=== PATIENT | female | born 2000 | race Caucasian/White ===

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

== ENCOUNTER 2020-05-29 04:24 | Emergency (ER) | payer BC ==
[2020-05-29 04:40] VITALS: TEMP 98.6
--- NOTE | 2020-05-29 04:50 | ED ---
Arrhythmia/Palpitations HPI - General Chief Complaint: Arrhythmia/Palpitations Stated Complaint: rapid heart rate Time Seen by Provider: 05/29/20 04:37 Source: patient, family Mode of arrival: ambulatory Limitations: no limitations - History of Present Illness Initial Comments: This patient is a 19-year-old woman who presents with complaint that she woke this morning with her heart racing. Patient states she has had episodes were felt like her heart was racing since being placed on Vilazodone a few weeks ago. The patient tonight also felt some nausea associated. She has not had any chest pain, diaphoresis, dyspnea or had any vomiting. MD Complaint: "heart racing" -: hour(s) Context: occurred during rest, awoke with symptoms Associated Symptoms: nausea/vomiting - Related Data Home Medications Medication Instructions Recorded Confirmed Sertraline [Zoloft] 50 mg PO DAILY 08/23/14 04/10/16 Omeprazole 20 mg PO DAILY 05/04/15 04/10/16 Cyanocobalamin [Vitamin B-12] 500 mcg PO DAILY 04/10/16 04/10/16 Norgestimate-Ethinyl Estradiol 1 tab PO DAILY 04/10/16 04/10/16 [Norg-Ee 0.18-0.215-0.25/0.035] Previous Rx's Medication Instructions Recorded Doxycycline Hyclate [Vibramycin] 100 mg PO DAILY #14 cap 07/28/17 traMADol HCl [Ultram] 50 mg PO Q6H PRN #12 tab 07/28/17 Allergies Allergy/AdvReac Type Severity Reaction Status Date / Time No Known Allergies Allergy Verified 05/29/20 04:37 Review of Systems ROS Statement: Those systems with pertinent positive or pertinent negative responses have been documented in the HPI. ROS Other: All systems not noted in ROS Statement are negative. Constitutional: Denies: fever, chills, weakness Eyes: Denies: vision change Respiratory: Denies: cough, dyspnea, wheezes Cardiovascular: Reports: palpitations. Denies: chest pain, dyspnea on exertion, orthopnea, edema, syncope Gastrointestinal: Reports: nausea. Denies: abdominal pain, vomiting, diarrhea Genitourinary: Denies: dysuria, hematuria Musculoskeletal: Denies: back pain Skin: Denies: rash Neurological: Denies: headache, weakness, numbness Psychiatric: Reports: anxiety Past Medical History Past Medical History: GERD/Reflux Additional Past Medical History / Comment(s): ovarian cyst History of Any Multi-Drug Resistant Organisms: None Reported Past Surgical History: No Surgical Hx Reported Past Psychological History: ADD/ADHD, Anxiety, Depression Smoking Status: Current every day smoker Past Alcohol Use History: None Reported Past Drug Use History: None Reported General Exam Limitations: no limitations General appearance: alert, in no apparent distress, anxious Head exam: Present: atraumatic, normocephalic Eye exam: Present: normal appearance. Absent: scleral icterus, conjunctival injection ENT exam: Present: normal oropharynx Neck exam: Present: normal inspection Respiratory exam: Present: normal lung sounds bilaterally. Absent: respiratory distress, wheezes, rales, rhonchi, stridor Cardiovascular Exam: Present: regular rate (Heart rate 92 at my exam), normal rhythm, normal heart sounds. Absent: systolic murmur, diastolic murmur, rubs, gallop GI/Abdominal exam: Present: soft. Absent: distended, tenderness, guarding, rebound, rigid, mass Extremities exam: Present: normal inspection, normal capillary refill. Absent: pedal edema, calf tenderness Back exam: Present: normal inspection. Absent: CVA tenderness (R), CVA tenderness (L) Neurological exam: Present: alert Psychiatric exam: Present: anxious Skin exam: Present: warm, dry, intact, urticaria Course Vital Signs 05/29/20 05/29/20 04:37 06:23 Temperature 98.6 F Pulse Rate 117 H 78 Respiratory 20 18 Rate Blood Pressure 145/95 94/60 O2 Sat by Pulse 98 99 Oximetry EKG Findings - EKG Results: EKG: interpreted by JAYA CHRISTIANL, sinus rhythm (Rate 91 bpm), normal axis, normal QRS, normal ST/T, no acute changes - PR, Pacemaker, Normal: Normal tracing: normal tracing Medical Decision Making - Lab Data Result diagrams: 05/29/20 05:03 05/29/20 05:03 Lab Results 05/29/20 05/29/20 05/29/20 Range/Units 05:03 05:03 05:03 WBC 7.4 (3.8-10.6) k/uL RBC 4.22 (3.80-5.40) m/uL Hgb 13.3 (11.4-16.0) gm/dL Hct 38.2 (34.0-46.0) % MCV 90.7 (80.0-100.0) fL MCH 31.5 (25.0-35.0) pg MCHC 34.8 (31.0-37.0) g/dL RDW 12.2 (11.5-15.5) % Plt Count 214 (150-450) k/uL MPV 8.5 Neutrophils % 33 % Lymphocytes % 53 % Monocytes % 6 % Eosinophils % 2 % Basophils % 2 % Neutrophils # 2.5 (1.3-7.7) k/uL Lymphocytes # 3.9 (1.0-4.8) k/uL Monocytes # 0.4 (0-1.0) k/uL Eosinophils # 0.2 (0-0.7) k/uL Basophils # 0.2 (0-0.2) k/uL PT (9.0-12.0) sec INR (<1.2) APTT (22.0-30.0) sec D-Dimer (<0.60) mg/L FEU Sodium 138 (137-145) mmol/L Potassium 4.3 (3.5-5.1) mmol/L Chloride 109 H (98-107) mmol/L Carbon Dioxide 22 (22-30) mmol/L Anion Gap 7 mmol/L BUN 13 (7-17) mg/dL Creatinine 0.93 (0.52-1.04) mg/dL Est GFR (CKD-EPI)AfAm >90 (>60 ml/min/1.73 sqM) Est GFR (CKD-EPI)NonAf 89 (>60 ml/min/1.73 sqM) Glucose 100 H (74-99) mg/dL Calcium 9.6 (8.4-10.2) mg/dL Magnesium 1.8 (1.6-2.3) mg/dL Total Bilirubin 0.9 (0.2-1.3) mg/dL AST 26 (14-36) U/L ALT 10 (4-34) U/L Alkaline Phosphatase 51 (38-126) U/L Troponin I (0.000-0.034) ng/mL C-Reactive Protein <5.0 (<10.0) mg/L Total Protein 8.2 (6.3-8.2) g/dL Albumin 4.7 (3.5-5.0) g/dL TSH 5.620 H (0.465-4.680) mIU/L Urine Color Yellow Urine Appearance Cloudy H (Clear) Urine pH 5.5 (5.0-8.0) Ur Specific [place] 1.024 (1.001-1.035) Urine Protein Trace H (Negative) Urine Glucose (UA) Negative (Negative) Urine Ketones Negative (Negative) Urine Blood Trace H (Negative) Urine Nitrite Negative (Negative) Urine Bilirubin Negative (Negative) Urine Urobilinogen <2.0 (<2.0) mg/dL Ur Leukocyte Esterase Small H (Negative) Urine RBC 2 (0-5) /hpf Urine WBC 1 (0-5) /hpf Ur Squamous Epith Cells 13 H (0-4) /hpf Urine Mucus Few H (None) /hpf Urine HCG, Qual (Not Detectd) Urine Opiates Screen Not Detected (NotDetected) Ur Oxycodone Screen Not Detected (NotDetected) Urine Methadone Screen Not Detected (NotDetected) Ur Propoxyphene Screen Not Detected (NotDetected) Ur Barbiturates Screen Not Detected (NotDetected) U Tricyclic Antidepress Detected H (NotDetected) Ur Phencyclidine Scrn Not Detected (NotDetected) Ur Amphetamines Screen Not Detected (NotDetected) U Methamphetamines Scrn Not Detected (NotDetected) U Benzodiazepines Scrn Not Detected (NotDetected) Urine Cocaine Screen Not Detected (NotDetected) U Marijuana (THC) Screen Detected H (NotDetected) 05/29/20 05/29/20 05/29/20 Range/Units 05:03 05:21 06:14 WBC (3.8-10.6) k/uL RBC (3.80-5.40) m/uL Hgb (11.4-16.0) gm/dL Hct (34.0-46.0) % MCV (80.0-100.0) fL MCH (25.0-35.0) pg MCHC (31.0-37.0) g/dL RDW (11.5-15.5) % Plt Count (150-450) k/uL MPV Neutrophils % % Lymphocytes % % Monocytes % % Eosinophils % % Basophils % % Neutrophils # (1.3-7.7) k/uL Lymphocytes # (1.0-4.8) k/uL Monocytes # (0-1.0) k/uL Eosinophils # (0-0.7) k/uL Basophils # (0-0.2) k/uL PT 10.3 (9.0-12.0) sec INR 1.0 (<1.2) APTT 24.7 (22.0-30.0) sec D-Dimer 0.75 H (<0.60) mg/L FEU Sodium (137-145) mmol/L Potassium (3.5-5.1) mmol/L Chloride (98-107) mmol/L Carbon Dioxide (22-30) mmol/L Anion Gap mmol/L BUN (7-17) mg/dL Creatinine (0.52-1.04) mg/dL Est GFR (CKD-EPI)AfAm (>60 ml/min/1.73 sqM) Est GFR (CKD-EPI)NonAf (>60 ml/min/1.73 sqM) Glucose (74-99) mg/dL Calcium (8.4-10.2) mg/dL Magnesium (1.6-2.3) mg/dL Total Bilirubin (0.2-1.3) mg/dL AST (14-36) U/L ALT (4-34) U/L Alkaline Phosphatase (38-126) U/L Troponin I <0.012 (0.000-0.034) ng/mL C-Reactive Protein (<10.0) mg/L Total Protein (6.3-8.2) g/dL Albumin (3.5-5.0) g/dL TSH (0.465-4.680) mIU/L Urine Color Urine Appearance (Clear) Urine pH (5.0-8.0) Ur Specific [place] (1.001-1.035) Urine Protein (Negative) Urine Glucose (UA) (Negative) Urine Ketones (Negative) Urine Blood (Negative) Urine Nitrite (Negative) Urine Bilirubin (Negative) Urine Urobilinogen (<2.0) mg/dL Ur Leukocyte Esterase (Negative) Urine RBC (0-5) /hpf Urine WBC (0-5) /hpf Ur Squamous Epith Cells (0-4) /hpf Urine Mucus (None) /hpf Urine HCG, Qual Not Detected (Not Detectd) Urine Opiates Screen (NotDetected) Ur Oxycodone Screen (NotDetected) Urine Methadone Screen (NotDetected) Ur Propoxyphene Screen (NotDetected) Ur Barbiturates Screen (NotDetected) U Tricyclic Antidepress (NotDetected) Ur Phencyclidine Scrn (NotDetected) Ur Amphetamines Screen (NotDetected) U Methamphetamines Scrn (NotDetected) U Benzodiazepines Scrn (NotDetected) Urine Cocaine Screen (NotDetected) U Marijuana (THC) Screen (NotDetected) Disposition Clinical Impression: Palpitations Disposition: HOME SELF-CARE Condition: Good Instructions (If sedation given, give patient instructions): Heart Palpitations (ED) Is patient prescribed a controlled substance at d/c from ED?: No Referrals: Jamal Black MD [Primary Care Provider] - 1-2 days
--- NOTE | 2020-05-29 05:12 | XR ---
EXAM: XR Chest, 2 Views CLINICAL HISTORY: ITS.REASON XR Reason: dysrhythmia TECHNIQUE: Frontal and lateral views of the chest. COMPARISON: Chest radiograph May 04, 2015. FINDINGS: Lungs: Unremarkable. No consolidation. Pleural space: Unremarkable. No pneumothorax. Heart: Unremarkable. No cardiomegaly. Mediastinum: Unremarkable. Bones/joints: Unremarkable. IMPRESSION: No focal infiltrate.
[2020-05-29 05:23] LABS: Basophils # (A) 0.2 k/uL (0-0.2); Basophils % (A) 2 %; Eosinophils # (A) 0.2 k/uL (0-0.7); Eosinophils % (A) 2 %; HCT 38.2 % (34.0-46.0); HGB 13.3 gm/dL (11.4-16.0); Lymphocytes # (A) 3.9 k/uL (1.0-4.8); Lymphocytes % (A) 53 %; MCH 31.5 pg (25.0-35.0); MCHC 34.8 g/dL (31.0-37.0); MCV 90.7 fL (80.0-100.0); Mean Platelet Volume 8.5; Monocytes # (A) 0.4 k/uL (0-1.0); Monocytes % (A) 6 %; Neutrophils # (A) 2.5 k/uL (1.3-7.7); Neutrophils % (A) 33 %; Platelet Count 214 k/uL (150-450); RBC 4.22 m/uL (3.80-5.40); RDW 12.2 % (11.5-15.5); WBC 7.4 k/uL (3.8-10.6)
[2020-05-29 05:53] LABS: ALT 10 U/L (4-34); African American GFR (CKD) >90 (>60 ml/min/1.73 sqM); Albumin 4.7 g/dL (3.5-5.0); Anion Gap 7 mmol/L; Blood Urea Nitrogen 13 mg/dL (7-17); Calcium 9.6 mg/dL (8.4-10.2); Carbon Dioxide 22 mmol/L (22-30); Chloride 109 mmol/L (98-107); Glucose 100 mg/dL (74-99); Non-African American GFR(CKD) 89 (>60 ml/min/1.73 sqM); Sodium 138 mmol/L (137-145); Total Bilirubin 0.9 mg/dL (0.2-1.3); Total Protein 8.2 g/dL (6.3-8.2)
[2020-05-29 05:59] LABS: Appearance,Urine Cloudy (Clear); Bilirubin,Urine Negative (Negative); Blood,Urine Trace (Negative); Color,Urine Yellow; Glucose,Urine (UA) Negative (Negative); Ketones,Urine Negative (Negative); Leukocyte Esterase,Urine Small (Negative); Mucus,Urine Few /hpf; Nitrite,Urine Negative (Negative); PH, Urine 5.5 (5.0-8.0); Protein,Urine Trace (Negative); RBC,Urine 2 /hpf (0-5); Specific Gravity,Urine 1.024 (1.001-1.035); Squamous Epithelial Cell,Urine 13 /hpf (0-4); Urobilinogen,Urine <2.0 mg/dL (<2.0); WBC,Urine 1 /hpf (0-5)
[2020-05-29 06:01] LABS: AST 26 U/L (14-36); Alkaline Phosphatase 51 U/L (38-126); Magnesium 1.8 mg/dL (1.6-2.3); Potassium 4.3 mmol/L (3.5-5.1)
[2020-05-29 06:02] LABS: C Reactive Protein <5.0 mg/L (<10.0)
[2020-05-29 06:11] LABS: Amphetamine Screen,Urine Not Detected (NotDetected); Barbiturate Screen,Urine Not Detected (NotDetected); Benzodiazepines Screen,Urine Not Detected (NotDetected); Cocaine Screen,Urine Not Detected (NotDetected); Methadone Screen, Urine Not Detected (NotDetected); Opiate Screen,Urine Not Detected (NotDetected); Oxycodone Screen, Urine Not Detected (NotDetected); Phencyclidine Screen,Urine Not Detected (NotDetected); Tricyclic Antidepressant,Urine Detected (NotDetected); Urn Cannabinoid Scrn Detected (NotDetected)
[2020-05-29 06:24] VITALS: BP 94/60; PULSE 78; RESP 18
[2020-05-29 06:43] LABS: Partial Thromboplastin Time 24.7 sec (22.0-30.0); Prothrombin Time 10.3 sec (9.0-12.0)
[2020-05-29 06:45] LABS: D-Dimer 0.75 mg/L FEU (<0.60)
== END 2020-05-29 07:09 | disposition home or self-care (01) ==
LOC: EC 04:24
DX: R00.2 Palpitations (principal); K21.9 Gastro-esophageal reflux disease without esophagitis; F41.9 Anxiety disorder, unspecified; F32.9 Major depressive disorder, single episode, unspecified; F17.200 Nicotine dependence, unspecified, uncomplicated; Z79.899 Other long term (current) drug therapy
CPT/HCPCS: 36415; 71046; 80053; 80306; 81001; 81025; 83735; 84443; 84484; 85025; 85379; 85610; 85730; 86140; 93005; 99285

== ENCOUNTER → 2021-10-19 | Outpatient (CLI) | payer BC ==
--- NOTE | 2021-10-22 09:12 | CT ---
EXAMINATION TYPE: CT urogram wo/w con DATE OF EXAM: 10/19/2021 HISTORY: Abd pain LLQ, RLQ, hematuria x [address] 1[address] DLP: 1920mGycm Automated Exposure Control for Dose Reduction was Utilized. CONTRAST: CT scan of the abdomen and pelvis is performed without oral and without and with IV Contrast, patient injected with 100ml mL of Isovue 300. Urogram protocol. Three-D reconstructed images created on an [employer] workstation and reviewed. COMPARISON: CT abdomen and pelvis April 10, 2016 FINDINGS: KUB: Noncontrast images show no renal calculi bilaterally. Postcontrast images show symmetric cord me asuring uptake and excretion without concerning solid or cystic renal mass bilaterally. Visualized po rtion of both ureters show incomplete opacification of the distal left ureter. No obvious calculus or mass. Urinary bladder shows no intraluminal calculus or suspicious intraluminal mass. No suspicious wall thickening is seen. Single left-sided pelvic phlebolith on axial image 69 is noted. LUNG BASES: No significant abnormality is appreciated. LIVER/GB: No significant abnormality is appreciated. PANCREAS: No significant abnormality is seen. SPLEEN: No significant abnormality is seen. ADRENALS: No significant abnormality is seen. BOWEL: No significant abnormality is seen. UTERUS/[place]EXA: No gross abnormality seen. LYMPH NODES: No greater than 1cm abdominal or pelvic lymph nodes are appreciated. OSSEOUS STRUCTURES: No significant abnormality is seen. OTHER: No significant additional abnormality is seen. IMPRESSION: Source of hematuria not identified. Unremarkable study.
== END | disposition home or self-care (01) ==
LOC: RADCTMAIN 14:47
PROVIDERS: ATTEND Urology
DX: R31.9 Hematuria, unspecified (principal); R10.32 Left lower quadrant pain; R10.31 Right lower quadrant pain
CPT/HCPCS: 74178; 74400; Q9967

== ENCOUNTER 2023-09-21 06:00 | Inpatient (IN) | payer BC, OTHER ==
[2023-09-21] MEDS ORDERED: METHYLERGONOVINE 0.2 MG/ML 1 ML AMP IM PRN (06:11)
[2023-09-21] MEDS ORDERED: OXYTOCIN 10 UNIT/ML 1 ML VIAL IM PRN (06:11)
[2023-09-21] MEDS ORDERED: CARBOPROST TROMETHAMINE 250 MCG/ML 1 ML AMP IM PRN (06:11)
[2023-09-21] MEDS ORDERED: TERBUTALINE 1 MG/ML VIAL SQ PRN (06:11)
[2023-09-21] MEDS ORDERED: LIDOCAINE 0.5% (PF) 5 MG/ML (50 ML SDV) SQ PRN (06:11)
[2023-09-21] MEDS ORDERED: miSOPROStoL 200 MCG TAB PO PRN (06:11)
[2023-09-21] MEDS ORDERED: TRANEXAMIC 1,000 MG/100ML-NACL 1,000 MG in EMPTY BAG 1 BAG IV PRN (06:11)
[2023-09-21] MEDS: LACTATED RINGERS 1,000 ML IV SCH (06:27)
[2023-09-21 06:44] LABS: Basophils % (A) 1 %; Eosinophils # (A) 0.1 k/uL (0-0.7); Eosinophils % (A) 1 %; HCT 33.3 % (34.0-46.0); HGB 11.2 gm/dL (11.4-16.0); Lymphocytes % (A) 25 %; MCH 31.3 pg (25.0-35.0); MCHC 33.6 g/dL (31.0-37.0); MCV 93.1 fL (80.0-100.0); Mean Platelet Volume 9.9; Monocytes # (A) 0.5 k/uL (0-1.0); Monocytes % (A) 6 %; Neutrophils # (A) 5.2 k/uL (1.3-7.7); Neutrophils % (A) 64 %; Platelet Count 228 k/uL (150-450); RBC 3.58 m/uL (3.80-5.40); RDW 13.5 % (11.5-15.5)
[2023-09-21] MEDS: NALBUPHINE 10 MG/ML (10 ML MDV) IV PRN (08:40)
[2023-09-21] MEDS: OXYTOCIN 30 UNITS/500 ML NS 30 UNIT in SALINE 1 500ML.BAG IV SCH (10:15)
--- NOTE | 2023-09-21 10:38 | P.HPOB ---
History of Present Illness H&P Date: 09/21/23 Chief Complaint: IUP @ 39 2/7 weeks, SROM This is a 22-year-old 1 para 0 at 39-2/7 weeks that presented to labor and delivery with complaints of spontaneous rupture of membranes. Patient states she noted spontaneous rupture of membranes around 4 AM, clear in nature. Patient did note occasional contractions and presented to labor and delivery. Patient had been receiving routine care which had been complicated by diagnosis of gestational diabetes, diet controlled. She has a history of anxiety/depression for which she takes Seroquel, and hypothyroidism for which she is been controlled with Synthroid. On blood work this patient is a blood type of a positive, rubella immune, hepatitis B surface engine negative, HIV negative, RPR is nonreactive, group B strep culture is negative. Review of Systems Constitutional: Denies chills, Denies fatigue, Denies fever Ears, nose, mouth and throat: Denies headache Cardiovascular: Reports leg edema Respiratory: Denies dyspnea Gastrointestinal: Denies constipation, Denies diarrhea, Denies nausea, Denies vomiting Genitourinary: Reports Past Medical History Past Medical History: GERD/Reflux Additional Past Medical History / Comment(s): ovarian cyst History of Any Multi-Drug Resistant Organisms: None Reported Past Surgical History: No Surgical Hx Reported Past Psychological History: ADD/ADHD, Anxiety, Depression Smoking Status: Never smoker Past Alcohol Use History: None Reported Past Drug Use History: None Reported Medications and Allergies Home Medications Medication Instructions Recorded Confirmed Type Levothyroxine Sodium [Synthroid] 100 mcg PO DAILY 09/21/23 09/21/23 History QUEtiapine [SEROquel] 25 mg PO DAILY 09/21/23 09/21/23 History Allergies Allergy/AdvReac Type Severity Reaction Status Date / Time No Known Allergies Allergy Verified 09/21/23 06:06 Exam Osteopathic Statement: *. No significant issues noted on an osteopathic structural exam other than those noted in the History and Physical/Consult. Vital Signs Temp Pulse Resp BP Pulse Ox 09/21/23 06:19 97.7 F 103 H 16 137/88 96 09/21/23 06:06 97.7 F 103 H 16 137/88 96 Intake and Output 09/20/23 09/21/23 09/21/23 22:59 06:59 14:59 Other: Weight 86.183 kg Targeted physical exam is performed this date General is well-nourished well- developed female in no acute distress, breathing is nonlabored, heart has a regular rate and rhythm, abdomen is gravid, on cervical exam she is 3-4/70/-3 station, heart tones are noted to be category 1 and she is leticia every 2 to 4 minutes. Results Result Diagrams: 09/21/23 06:20 Abnormal Lab Results - Last 24 Hours (Table) 09/21/23 Range/Units 06:20 RBC 3.58 L (3.80-5.40) m/uL Hgb 11.2 L (11.4-16.0) gm/dL Hct 33.3 L (34.0-46.0) % Assessment and Plan (1) Term Current Visit: Yes Status: Acute Code(s): Z34.90 - ENCNTR FOR SUPRVSN OF NORMAL , UNSP, UNSP TRIMESTER SNOMED Code(s): 00756783 (2) GDM (gestational diabetes mellitus), class A1 Current Visit: Yes Status: Acute Code(s): O24.410 - GESTATIONAL DIABETES MELLITUS IN , DIET CONTROLLED SNOMED Code(s): 89756237 (3) Spontaneous rupture of membranes Current Visit: Yes Status: Acute Code(s): LCE1397 - SNOMED Code(s): 915731595 Plan: 22-year-old 1 para 0 at 39-2/7 weeks presents with complaints of spontaneous rupture of membranes. Patient was admitted to labor and delivery. Options for analgesia are discussed including Nubain, nitrous, epidural. Patient will consider. Pitocin augmentation as clinically indicated
[2023-09-21] MEDS ORDERED: SODIUM CHLORIDE 0.9% 250 ML BAG ONE (11:10)
[2023-09-21] MEDS ORDERED: fentaNYL (PF) 50 MCG/ML 5 ML AMP ONE (11:10)
[2023-09-21] MEDS ORDERED: ROPIVACAINE 5 MG/ML 30 ML VIAL ONE (11:10)
[2023-09-21] MEDS ORDERED: HYDROCORTISONE 2.5% RECTAL CREAM 30 GM TUBE RECTAL PRN (22:00)
[2023-09-21] MEDS ORDERED: diphenhydrAMINE 50 MG CAP PO PRN (22:00)
[2023-09-21] MEDS ORDERED: BENZOCAINE/MENTHOL SPRAY 1 GM/SPRAY AEROSOL TOPICAL PRN (22:00)
[2023-09-21] MEDS ORDERED: ZOLPIDEM 5 MG TAB PO PRN (22:00)
[2023-09-21] MEDS ORDERED: diphenhydrAMINE 25 MG CAP PO PRN (22:00)
[2023-09-21] MEDS ORDERED: SIMETHICONE 80 MG CHEWABLE PO PRN (22:00)
[2023-09-21] MEDS ORDERED: LANOLIN CREAM 1 GM TUBE TOPICAL PRN (22:00)
[2023-09-21] MEDS ORDERED: diphenhydrAMINE 50 MG/ML 1 ML VIAL IVP PRN ×2 (22:00)
[2023-09-21] MEDS ORDERED: OXYTOCIN 30 UNITS/500 ML NS 30 UNIT in SALINE 1 500ML.BAG IV SCH (22:00)
--- NOTE | 2023-09-21 22:00 | P.PROBDLV ---
Vaginal Delivery Note - . Vaginal Delivery Note: 22-year-old 1 para 0 at 39-2/7 weeks presented to this morning with complaints of spontaneous rupture of membranes. Patient was admitted to labor and delivery. Patient was noted to be leticia irregularly therefore Pitocin augmentation of labor was begun. Patient did receive an epidural for analgesia. Patient made slow progress to complete dilation. Once patient was noted to be completely dilated she began pushing. With excellent maternal effort patient brought the infant down to a chronic presentation. The anterior/posterior shoulder was delivered followed by the body without difficulty. The was handed to the maternal abdomen. Spontaneous cry was noted at . After 2-minute delay the umbilical cord was doubly clamped and cut. The placenta was delivered spontaneously intact with a three-vessel cord being noted. On inspection the patient's vaginal vault second-degree midline laceration was appreciated and repaired in usual fashion after instillation of lidocaine. 3-0 Rapide was used to complete closure. Hemostasis was noted after closure. Uterus was noted to be firm below the umbilicus. A red rubber catheter was used to drain the bladder of approximately 100 cc of clear yellow urine. Estimated blood loss 200 cc All counts noted be correct x 2 at the end of the delivery. Patient and infant tolerated delivery well and are resting comfortably.
[2023-09-21] MEDS: IBUPROFEN 600 MG TAB PO SCH (22:32)
[2023-09-22] MEDS: ACETAMINOPHEN TAB 325 MG TAB PO PRN (01:41)
[2023-09-22] MEDS: LEVOTHYROXINE 100 MCG TAB PO SCH (05:55)
--- NOTE | 2023-09-22 08:47 | P.PNOBGVD ---
Subjective - Subjective Patient reports: Reports appetite normal, Reports voiding normally, Reports pain well controlled, Reports ambulating normally : doing well Objective - Latest Vital Signs Latest vital signs: Vital Signs Temp Pulse Resp BP Pulse Ox 09/22/23 06:14 98.2 F 92 18 118/79 09/22/23 00:30 78 15 106/77 09/22/23 00:10 98.9 F 87 15 119/78 09/21/23 23:55 99 16 122/76 09/21/23 23:40 97 15 120/80 09/21/23 23:25 99.1 F 84 16 122/76 99 09/21/23 23:10 88 15 121/72 99 09/21/23 22:40 98.7 F 87 15 122/69 09/21/23 22:25 101 H 16 138/69 09/21/23 22:14 101 H 09/21/23 22:10 101 H 16 133/70 09/21/23 21:55 97.7 F 96 16 119/71 100 Intake and Output 09/21/23 09/22/23 09/22/23 22:59 06:59 14:59 Intake Total 480 Output Total 200 100 Balance -200 380 Intake: Oral 480 Output: Estimated Blood Loss 200 Output, Quantitative 100 Blood Loss Other: # Voids 1 - Exam Extremities: Present: normal Abdomen: Present: normal appearance, soft Uterus: Present: normal, firm (The uterine fundus is tonic and nontender well below the umbilicus.) Assessment and Plan (1) Normal spontaneous vaginal delivery Current Visit: Yes Status: Acute Code(s): O80 - ENCOUNTER FOR FULL-TERM UNCOMPLICATED DELIVERY SNOMED Code(s): 75695272 Plan: Continue routine care. I would anticipate discharge home tomorrow pending no complications.
[2023-09-22] MEDS: QUEtiapine 25 MG TAB PO SCH (08:48)
[2023-09-22] MEDS: SENNOSIDES-DOCUSATE SODIUM 1 EACH TAB PO SCH (08:48)
[2023-09-23] MEDS: IBUPROFEN 600 MG TAB PO PRN (03:33)
--- NOTE | 2023-09-23 08:39 | P.DS ---
Providers Date of admission: 09/21/23 06:17 Expected date of discharge: 09/23/23 Attending physician: Gilbert Clemens Primary care physician: Stated None - Discharge Diagnosis(es) (1) Normal spontaneous vaginal delivery Current Visit: Yes Status: Acute Hospital Course: Is a 22-year-old 1 para 0 admitted at 39-2/7 weeks by good dating parameters. She is admitted with documented spontaneous rupture of membranes for clear fluid. Her was uncomplicated and group B strep status is negative. On labor and delivery she was found to be leticia irregularly and had Pitocin augmentation started she progressed relatively slowly and ultimately had an epidural catheter placed for analgesia. She continued to progress and ultimately reach complete after which she pushed to a normal spontaneous vaginal delivery of a viable 7 pound 8 ounce baby boy with Apgars of 8 at 1 minute and 9 at 5 minutes. Her course was entirely unremarkable with vital signs remaining stable and her temperature was afebrile throughout. She was deemed stable for discharge on day #2 and was discharged home to follow-up in the office in 6 weeks time routinely. Discharge instructions included calling for any significantly increased bleeding or foul-smelling lochia, significantly increased fever or abdominal pain, perineal complaints, breast complaints, or anything else that concerned her. She was additionally instructed to have nothing in the vagina for at least 6 weeks time to include intercourse. She understood her instructions and agrees to follow-up as noted above. Discharge medications included continued [id number] analgesic pain medications. She has opted not to breast-feed. Maternal blood type is a positive and rubella status is immune. Procedures: #1. Pitocin augmentation #2. Epidural analgesia #3. Normal spontaneous vaginal delivery #4. Repair of perineal laceration Patient Condition at Discharge: Stable Plan - Discharge Summary New Discharge Prescriptions: No Action Levothyroxine Sodium [Synthroid] 100 mcg PO DAILY QUEtiapine [SEROquel] 25 mg PO DAILY Discharge Medication List Levothyroxine Sodium [Synthroid] 100 mcg PO DAILY 09/21/23 [History] QUEtiapine [SEROquel] 25 mg PO DAILY 09/21/23 [History] Follow up Appointment(s)/Referral(s): Gilbert Clemens MD [STAFF PHYSICIAN] - 6 Weeks
[2023-09-23 09:43] VITALS: BP 105/67; PULSE 78; RESP 15; TEMP 98.7
== END 2023-09-23 15:30 | disposition home or self-care (01) | DRG 807 ==
LOC: FBPOP 06:00 → 4FBP 06:17
PROVIDERS: ADMIT Obstetrics & Gynecology Obstetrics; ATTEND Obstetrics & Gynecology
PROC: 0KQM0ZZ Repair Perineum Muscle, Open Approach (ICD-10-PCS; principal; 2023-09-21)
PROC: 10E0XZZ Delivery of Products of Conception, External Approach (ICD-10-PCS; principal; 2023-09-21)
DX: O24.420 Gestational diabetes mellitus in childbirth, diet controlled (principal); O99.344 Other mental disorders complicating childbirth; F41.9 Anxiety disorder, unspecified; O99.284 Endocrine, nutritional and metabolic diseases complicating childbirth; O70.1 Second degree perineal laceration during delivery; E03.9 Hypothyroidism, unspecified; F32.A Depression, unspecified; F90.9 Attention-deficit hyperactivity disorder, unspecified type; O99.62 Diseases of the digestive system complicating childbirth; K21.9 Gastro-esophageal reflux disease without esophagitis; Z79.890 Hormone replacement therapy; Z79.899 Other long term (current) drug therapy; Z3A.39 39 weeks gestation of pregnancy; Z37.0 Single live birth
CPT/HCPCS: 85025; 86850; 86900; 86901; 99213

== ENCOUNTER 2023-09-25 09:09 | Emergency (ER) | payer BC, OTHER ==
[2023-09-25 09:27] VITALS: TEMP 97.7
[2023-09-25] MEDS: KETOROLAC 15 MG/ML 1 ML VIAL IVP STA ×2 (09:42→12:24)
[2023-09-25] MEDS: SODIUM CHLORIDE 0.9% 1,000 ML IV ONE (09:42)
--- NOTE | 2023-09-25 09:42 | ED ---
Female Urogenital HPI - General Chief complaint: Vaginal Bleeding Stated complaint: Vaginal bleeding-Post labor Time Seen by Provider: 09/25/23 09:16 Source: patient, RN notes reviewed Mode of arrival: ambulatory Limitations: no limitations - History of Present Illness Initial comments: This is a 22-year-old female who presents to the emergency department for vaginal bleeding. Patient had a vaginal delivery on 09/20, states that this was uncomplicated and she had no problems in . She had light bleeding afterwards, however this morning when she woke up she started to have much heavier bleeding and was passing clots. She has minor abdominal cramping associated with this. Denies any nausea or vomiting. She is not breast feeding. MD Complaint: vaginal bleeding - Related Data Home Medications Medication Instructions Recorded Confirmed Levothyroxine Sodium [Synthroid] 100 mcg PO DAILY 09/21/23 09/21/23 QUEtiapine [SEROquel] 25 mg PO DAILY 09/21/23 09/21/23 Previous Rx's Medication Instructions Recorded cefUROXime axetiL [Ceftin] 500 mg PO BID 7 Days #14 tab 09/25/23 Allergies Allergy/AdvReac Type Severity Reaction Status Date / Time No Known Allergies Allergy Verified 09/25/23 09:15 Review of Systems ROS Statement: Those systems with pertinent positive or pertinent negative responses have been documented in the HPI. ROS Other: All systems not noted in ROS Statement are negative. Past Medical History Past Medical History: GERD/Reflux Additional Past Medical History / Comment(s): ovarian cyst History of Any Multi-Drug Resistant Organisms: None Reported Past Surgical History: No Surgical Hx Reported Past Psychological History: ADD/ADHD, Anxiety, Depression Smoking Status: Never smoker Past Alcohol Use History: None Reported Past Drug Use History: None Reported General Exam Limitations: no limitations General appearance: alert, in no apparent distress Head exam: Present: atraumatic, normocephalic, normal inspection Respiratory exam: Present: normal lung sounds bilaterally. Absent: respiratory distress, wheezes, rales, rhonchi, stridor Cardiovascular Exam: Present: regular rate, normal rhythm, normal heart sounds. Absent: systolic murmur, diastolic murmur, rubs, gallop, clicks GI/Abdominal exam: Present: soft, normal bowel sounds. Absent: distended, tenderness, guarding, rebound, rigid External exam: Present: normal external exam Speculum exam: Present: other (sutures intact). Absent: vaginal discharge, vaginal bleeding Neurological exam: Present: alert, oriented X3, CN II-XII intact Psychiatric exam: Present: normal affect, normal mood Skin exam: Present: warm, dry, intact, normal color. Absent: rash Course Vital Signs 09/25/23 09/25/23 09/25/23 09:13 09:47 10:51 Temperature 97.7 F Pulse Rate 109 H 85 70 Respiratory 16 20 20 Rate Blood Pressure 132/88 127/68 113/80 O2 Sat by Pulse 100 98 98 Oximetry 09/25/23 12:27 Temperature Pulse Rate 67 Respiratory 16 Rate Blood Pressure 119/79 O2 Sat by Pulse 98 Oximetry Medical Decision Making - Medical Decision Making This is a 22 year old female who presents to the emergency department for va ginal bleeding. Was pt. sent in by a medical professional or institution? @ -No Did you speak to anyone other than the patient for history? @ -No Did you review nursing and triage notes? @ -Yes, and I agree, it is accurate with regards to the patient's symptoms. Were old charts reviewed? @ -No Differential Diagnosis? @ -Differential Vaginal Bleeding: Spontaneous , threatened , molar , ectopic , incompetent cervix, placenta previa, uterine rupture, dysfunctional uterine bleeding, hemorrhage, uterine fibroids, malignancy, coagulopathy, PID, cervicitis, adenomyosis, vaginal trauma, this is not meant to be an all- inclusive list. EKG interpreted by me (3pts min.)? @ -Not obtained X-rays interpreted by me (1pt min.)? @ -Not obtained CT interpreted by me (1pt min.)? @ -Not obtained U/S interpreted by me (1pt. min.)? @ -Pelvic ultrasound obtained. My interpretation identifies no retained products of conception. What testing was considered but not performed? (CT, X-rays, U/S, labs)? Why? @ -None What meds were considered but not given? Why? @ -None Did you discuss the management of the patient with other professionals? @ -Yes, Dr. Clemens, TRAINING DESIGNER. He states that given that the previous hemoglobin was obtained prepartum, her hemoglobin of 8.7 is to be expected. He advised ibuprofen to help with the bleeding and discomfort and follow-up as scheduled. Did you reconcile home meds? @ -No Was smoking cessation discussed for >3mins.? @ -No Was critical care preformed (if so, how long)? @ -No Were there social determinants of health that impacted care today? How? (Homelessness, low income, unemployed, alcoholism, drug addiction, transportation, low edu. Level, literacy, decrease access to med. care, fdc, rehab)? @ -No Was there de-escalation of care discussed even if they declined? (Discuss DNR or withdrawal of care, Hospice)? @ -No What co-morbidities impacted this encounter? (DM, HTN, Smoking, COPD, CAD, Cancer, CVA, Hep., AIDS, mental health diagnosis, sleep apnea, morbid obesity)? @ -None Was patient admitted / discharged? @ -Discharged. Lab work demonstrates a hemoglobin of 8.7, which is decreased when compared with 09/20, when it was 11.2. However, this hemoglobin was obtained prepartum. Lab work was otherwise unremarkable. Urinalysis does have a large amount of white blood cells and some bacteria. Urine sent for culture. Pelvic ultrasound obtained revealing no acute process, including no evidence of retained products of conception. Physical examination demonstrates no active bleeding and her sutures are intact. Case discussed with patient's TRAINING DESIGNER, Dr. Clemens. He advised that because the hemoglobin of 11.2 was obtained prepartum, the hemoglobin of 8.7 is considered adequate and to be expected. He recommended ibuprofen to help with bleeding and discomfort and follow-up as scheduled. Given that the patient did have some bacteria in her urine and a large amount of white blood cells, she was given a prescription for cefuroxime. Patient otherwise discharged home in stable condition. Undiagnosed new problem with uncertain prognosis? @ -None Drug Therapy requiring intensive monitoring for toxicity (Heparin, Nitro, Insulin, Cardizem)? @ -None Were any procedures done? @ -None Diagnosis/symptom? @ - bleeding Acute, or Chronic, or Acute on Chronic? @ -Acute Uncomplicated (without systemic symptoms) or Complicated (systemic symptoms)? @ -Uncomplicated Side effects of treatment? @ -None Exacerbation, Progression, or Severe Exacerbation] @ -Not applicable Poses a threat to life or bodily function? @ -Unlikely Return precautions reviewed in depth, the patient is instructed to return to the emergency department with any new, worsening, or concerning symptoms. Patient verbalized understanding. This case was discussed in detail with the attending ED physician, Dr. Mooney. Presentation, findings, and treatment plan discussed in detail as well. - Lab Data Result diagrams: 09/25/23 09:28 09/25/23 09:28 Lab Results 09/25/23 09/25/23 09/25/23 Range/Units 09:28 09:28 09:28 WBC 10.3 (3.8-10.6) k/uL RBC 2.84 L (3.80-5.40) m/uL Hgb 8.7 L D (11.4-16.0) gm/dL Hct 26.6 L (34.0-46.0) % MCV 93.8 (80.0-100.0) fL MCH 30.5 (25.0-35.0) pg MCHC 32.5 (31.0-37.0) g/dL RDW 13.9 (11.5-15.5) % Plt Count 274 (150-450) k/uL MPV 8.8 Neutrophils % 69 % Lymphocytes % 22 % Monocytes % 4 % Eosinophils % 2 % Basophils % 0 % Neutrophils # 7.1 (1.3-7.7) k/uL Lymphocytes # 2.2 (1.0-4.8) k/uL Monocytes # 0.4 (0-1.0) k/uL Eosinophils # 0.2 (0-0.7) k/uL Basophils # 0.0 (0-0.2) k/uL PT 9.4 L (10.0-12.5) sec INR 0.8 (<1.2) APTT 22.6 (22.0-30.0) sec Sodium 139 (137-145) mmol/L Potassium 4.0 (3.5-5.1) mmol/L Chloride 109 H (98-107) mmol/L Carbon Dioxide 23 (22-30) mmol/L Anion Gap 7 mmol/L BUN 13 (7-17) mg/dL Creatinine 0.64 (0.52-1.04) mg/dL Est GFR (CKD-EPI)AfAm >90 (>60 ml/min/1.73 sqM) Est GFR (CKD-EPI)NonAf >90 (>60 ml/min/1.73 sqM) Glucose 85 (74-99) mg/dL Calcium 8.5 (8.4-10.2) mg/dL Total Bilirubin 0.4 (0.2-1.3) mg/dL AST 43 H (14-36) U/L ALT 33 (4-34) U/L Alkaline Phosphatase 125 (38-126) U/L Total Protein 5.7 L (6.3-8.2) g/dL Albumin 2.9 L (3.5-5.0) g/dL Urine Color Urine Appearance (Clear) Urine pH (5.0-8.0) Ur Specific [place] (1.001-1.035) Urine Protein (Negative) Urine Glucose (UA) (Negative) Urine Ketones (Negative) Urine Blood (Negative) Urine Nitrite (Negative) Urine Bilirubin (Negative) Urine Urobilinogen (<2.0) mg/dL Ur Leukocyte Esterase (Negative) Urine RBC (0-5) /hpf Urine WBC (0-5) /hpf Urine WBC Clumps (None) /hpf Ur Squamous Epith Cells (0-4) /hpf Urine Bacteria (None) /hpf 09/25/23 Range/Units 10:43 WBC (3.8-10.6) k/uL RBC (3.80-5.40) m/uL Hgb (11.4-16.0) gm/dL Hct (34.0-46.0) % MCV (80.0-100.0) fL MCH (25.0-35.0) pg MCHC (31.0-37.0) g/dL RDW (11.5-15.5) % Plt Count (150-450) k/uL MPV Neutrophils % % Lymphocytes % % Monocytes % % Eosinophils % % Basophils % % Neutrophils # (1.3-7.7) k/uL Lymphocytes # (1.0-4.8) k/uL Monocytes # (0-1.0) k/uL Eosinophils # (0-0.7) k/uL Basophils # (0-0.2) k/uL PT (10.0-12.5) sec INR (<1.2) APTT (22.0-30.0) sec Sodium (137-145) mmol/L Potassium (3.5-5.1) mmol/L Chloride (98-107) mmol/L Carbon Dioxide (22-30) mmol/L Anion Gap mmol/L BUN (7-17) mg/dL Creatinine (0.52-1.04) mg/dL Est GFR (CKD-EPI)AfAm (>60 ml/min/1.73 sqM) Est GFR (CKD-EPI)NonAf (>60 ml/min/1.73 sqM) Glucose (74-99) mg/dL Calcium (8.4-10.2) mg/dL Total Bilirubin (0.2-1.3) mg/dL AST (14-36) U/L ALT (4-34) U/L Alkaline Phosphatase (38-126) U/L Total Protein (6.3-8.2) g/dL Albumin (3.5-5.0) g/dL Urine Color Colorless Urine Appearance Cloudy H (Clear) Urine pH 7.0 (5.0-8.0) Ur Specific [place] 1.005 (1.001-1.035) Urine Protein Trace H (Negative) Urine Glucose (UA) Negative (Negative) Urine Ketones Negative (Negative) Urine Blood Large H (Negative) Urine Nitrite Negative (Negative) Urine Bilirubin Negative (Negative) Urine Urobilinogen <2.0 (<2.0) mg/dL Ur Leukocyte Esterase Large H (Negative) Urine RBC 40 H (0-5) /hpf Urine WBC >182 H (0-5) /hpf Urine WBC Clumps Many H (None) /hpf Ur Squamous Epith Cells 2 (0-4) /hpf Urine Bacteria Occasional H (None) /hpf - Radiology Data Radiology results: report reviewed, image reviewed Disposition Clinical Impression: bleeding, UTI (urinary tract infection) Disposition: HOME SELF-CARE Instructions (If sedation given, give patient instructions): Bleeding (ED) Additional Instructions: Return to the emergency department with any new, worsening, or concerning symptoms. Alternate with ibuprofen and Tylenol as needed for pain relief. The ibuprofen will also help with the bleeding. Take the antibiotic as prescribed for 7 days. Follow up with your TRAINING DESIGNER. Prescriptions: cefUROXime axetiL [Ceftin] 500 mg PO BID 7 Days #14 tab Is patient prescribed a controlled substance at d/c from ED?: No Referrals: Nonstaff,Physician [Primary Care Provider] - 1-2 days Time of Disposition: 12:06
[2023-09-25 10:00] LABS: Basophils % (A) 0 %; Eosinophils # (A) 0.2 k/uL (0-0.7); Eosinophils % (A) 2 %; HCT 26.6 % (34.0-46.0); HGB 8.7 gm/dL (11.4-16.0); Lymphocytes # (A) 2.2 k/uL (1.0-4.8); Lymphocytes % (A) 22 %; MCH 30.5 pg (25.0-35.0); MCHC 32.5 g/dL (31.0-37.0); MCV 93.8 fL (80.0-100.0); Mean Platelet Volume 8.8; Monocytes # (A) 0.4 k/uL (0-1.0); Monocytes % (A) 4 %; Neutrophils # (A) 7.1 k/uL (1.3-7.7); Neutrophils % (A) 69 %; Platelet Count 274 k/uL (150-450); RBC 2.84 m/uL (3.80-5.40); RDW 13.9 % (11.5-15.5); WBC 10.3 k/uL (3.8-10.6)
[2023-09-25 10:09] LABS: INR 0.8 (<1.2); Partial Thromboplastin Time 22.6 sec (22.0-30.0); Prothrombin Time 9.4 sec (10.0-12.5)
[2023-09-25 10:17] LABS: ALT 33 U/L (4-34); AST 43 U/L (14-36); African American GFR (CKD) >90 (>60 ml/min/1.73 sqM); Albumin 2.9 g/dL (3.5-5.0); Alkaline Phosphatase 125 U/L (38-126); Anion Gap 7 mmol/L; Blood Urea Nitrogen 13 mg/dL (7-17); Calcium 8.5 mg/dL (8.4-10.2); Carbon Dioxide 23 mmol/L (22-30); Chloride 109 mmol/L (98-107); Glucose 85 mg/dL (74-99); Non-African American GFR(CKD) >90 (>60 ml/min/1.73 sqM); Sodium 139 mmol/L (137-145); Total Bilirubin 0.4 mg/dL (0.2-1.3); Total Protein 5.7 g/dL (6.3-8.2)
[2023-09-25 11:09] LABS: Appearance,Urine Cloudy (Clear); Bacteria,Urine Occasional /hpf; Bilirubin,Urine Negative (Negative); Blood,Urine Large (Negative); Color,Urine Colorless; Glucose,Urine (UA) Negative (Negative); Ketones,Urine Negative (Negative); Leukocyte Esterase,Urine Large (Negative); Nitrite,Urine Negative (Negative); Protein,Urine Trace (Negative); RBC,Urine 40 /hpf (0-5); Specific Gravity,Urine 1.005 (1.001-1.035); Squamous Epithelial Cell,Urine 2 /hpf (0-4); Urobilinogen,Urine <2.0 mg/dL (<2.0); WBC,Urine >182 /hpf (0-5)
--- NOTE | 2023-09-25 11:10 | US ---
EXAMINATION TYPE: US pelvic complete DATE OF EXAM: 09/25/2023 COMPARISON: NONE CLINICAL INDICATION: Female, 22 years old with history of bleeding; bleeding johnson d vaginal delivery Friday. TECHNIQUE: Transabdominal (TA EXAM MEASUREMENTS: Uterus: 17.6 x 8.4 x 10.1 cm Endometrial Stripe: 1.5 cm 1. Uterus: Anteverted 2. Endometrium: wnl 3. Right Ovary: Obscured by overlying bowel gas 4. Left Ovary: Obscured by overlying bowel gas 5. Bilateral Adnexa: wnl 6. Posterior cul-de-sac: wnl IMPRESSION: Negative exam although limited imaging of the ovaries due to bowel gas.
[2023-09-25] MEDS: ACET/COD 300 MG/30 MG STARTER PACK 6 TAB BTL PO STA (12:23)
[2023-09-25 12:30] VITALS: BP 119/79; PULSE 67; RESP 16
== END 2023-09-25 12:30 | disposition home or self-care (01) ==
LOC: EC 09:09
DX: O86.20 Urinary tract infection following delivery, unspecified (principal); O72.1 Other immediate postpartum hemorrhage
CPT/HCPCS: 96376 ×2; 96361 ×2; 96374 ×2; 99284 ×2; 36415; 80053; 85025; 85610; 85730; 81001; 87086; 87077; 87186; 76856; J1885